=== PATIENT | female | born 1965 ===

== ENCOUNTER 2024-05-28 09:01 | Outpatient (AMB) | payer BC, SELFPAY ==
--- NOTE | 2024-05-28 09:15 | A.OFFPC_ITS ---
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 Intake Note: New patient visit Allergies No Known Allergies Allergy (Verified 05/28/24 09:16) Medication List - Last Reconciled 05/28/24 by Margaux Baker PA-C escitalopram oxalate 10 mg PO DAILY risperidone 1 mg PO BID Tobacco use date assessed: 05/28/24 Dental Screening Dental Screen Date: 05/28/24 Did you have a dental visit in the last 12 months?: Yes Did you have a dental problem in the last 6 months where you did not have access to dental care?: No Was dental information given to patient?: Patient has dentist HPI 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 Transferring from [facility] with her . Psych: She is on Lexapro 10 mg daily and Risperdal 1 mg once a day. She was supposed to follow up with a psychiatrist and states that she finally has an appointment on 06/18. She is hoping to further cut back on the Risperdal. Overall she is feeling stable. No SI/HI. No current delusions. 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 Does use at [facility]. [facility] Social History Housing: House Patient Tobacco Use Status: Former Tobacco user Cigarette Packs Per Day: 1 Years Smoked: 20 e-Cigarette/Vaping Use: Never Used Second Hand Smoke Exposure: No service: No Current occupational status: retired Cognitive needs: No Hearing needs: No Vision needs: Yes (blind) Questionnaire PHQ-9 Over the last 2 weeks, how often have you been bothered by any of the following problems? 1. Little interest or pleasure in doing things: not at all 2. Feeling down, depressed, or hopeless: not at all 3. Trouble falling or staying asleep, or sleeping too much: not at all 4. Feeling tired or having little energy: not at all 5. Poor appetite or overeating: not at all 6. Feeling bad about yourself - or that you are a failure or have let yourself or your family down: not at all 7. Trouble concentrating on things, such as reading the newspaper or watching television: not at all 8. Moving or speaking so slowly that other people could have noticed. Or the opposite - being so fidgety or restless that you have been moving around a lot more than usual: not at all 9. Thoughts that you would be better off or of hurting yourself in some way: not at all Total score: 0 Source: Developed by Drs. Jarad Sparrow, Lidia Hoover, Mina Amaral and colleagues, with an educational leigha from [employer]. Thrive Questionnaire Date Thrive assessed: 05/25/24 I am a: Patient What is your living situation today?: I have a steady place to live Within the past 12 months, did the food you bought not last and you didn't have the money to get more?: Never true Within the past 12 months, did you worry whether your food would run out before you got money to buy more?: Never true Do you have trouble paying for medicines?: No Do you have trouble getting transportation to medical appointments?: No Do you have trouble paying your heating and electricity bill?: No Do you have trouble taking care of your child, family member or friend?: I choose not to answer this question Do you have trouble with day-to-day activities such as bathing, preparing meals, shopping, managing finances, etc.?: I choose not to answer this question Are you currently unemployed and looking for a job?: I choose not to answer this question Are you interested in more education?: No Please select the resources that you would like help with: None Currently or been in a relationship where the following occur: No concerns reported THRIVE Score: 0 AUDIT C Alcohol Use Questionnaire (AUDIT-C) 1. How often do you have a drink containing alcohol?: Never 3. How often do you have six or more drinks on one occasion?: Never Total Score: 0 REMIGIO-7 AMB Questionnaire REMIGIO-7 Feeling nervous, anxious, or on edge: 0 = Not at all Not being able to stop or control worryin = Not at all Worrying too much about different things: 0 = Not at all Trouble relaxin = Not at all Being so restless that it is hard to sit still: 0 = Not at all Becoming easily annoyed or irritable: 0 = Not at all Feeling afraid as if something awful might happen: 0 = Not at all Total REMIGIO-7 score (0-4 normal; 5-9 mild; 10-14 moderate; 15-21 severe): 0 Source: Developed by Drs. Jarad Sparrow, Lidia Hoover, Mina Amaral and colleagues, with an educational leigha from [employer]. Physical exam (Primary Care) Vital Signs: Last Vital Signs Pulse 85 05/28/24 09:20 BP 98/76 05/28/24 09:20 Pulse Ox 95 05/28/24 09:20 Oxygen Delivery Method Room Air 05/28/24 09:20 BMI result Body Mass Index 32.3 Tobacco/Smoking Status: Tobacco use Status Tobacco use date assessed 05/28/24 05/28/24 09:19 Patient Tobacco Use Status Former Tobacco user 05/28/24 09:19 e-Cigarette/Vaping Use Never Used 05/28/24 09:19 PHQ-9: PHQ-9 Score PHQ-9: Total score 0 05/28/24 09:54 Thrive Assessment: Date of Thrive Assessment Date Thrive assessed 05/25/24 05/28/24 09:19 Currently or been in a relationship where the following occur: No concerns reported Const Orientation/consciousness: patient oriented x3 HENMT Ears: hearing grossly normal bilaterally Neck Thyroid: Thyroid normal Lymphatic: no lymphadenopathy noted Resp Auscultation: clear to auscultation bilaterally Cardio Rate: regular rate Rhythm: regular rhythm Heart sounds: S1 normal heart sound present and S2 normal heart sound present GI Inspection: Yes normal to inspection Palpation (GI): Soft to palpation and Other GI palpation findings present (nontender, no cva tenderness) Auscultation: normoactive bowel sounds Rectal Exam - Female: deferred Skin General skin exam: no rashes or lesions noted Neuro General: patient oriented x3, gait normal and no focal motor deficits Coding Level of Care Code Est Pt Level 4 (38470) Complex EM visit Add On G2211 Diagnoses Retinitis pigmentosa H35.52 Hyperlipidemia E78.5 Anxiety and depression F41.9; F32.A Paranoid delusion F22 Assessment & Plan Assessment & Plan (1) Retinitis pigmentosa: Code(s): H35.52 - Pigmentary retinal dystrophy Category: Medical Plan: Stable (2) Hyperlipidemia: Code(s): E78.5 - Hyperlipidemia, unspecified Category: Medical Plan: Last labs from [facility] did show a little elevated cholesterol. Working on some diet changes. We will recheck. (3) Anxiety and depression: Code(s): F41.9 - Anxiety disorder, unspecified; F32.A - Depression, unspecified Category: Medical Plan: Stable with Lexapro and Risperdal. Has an appointment with Psychiatry. (4) Paranoid delusion: Code(s): F22 - Delusional disorders Category: Medical Plan: Not currently present. Orders: Orders Complete Blood Count Auto Diff Today E78.5 - Hyperlipidemia, unspecified, F22 - Delusional disorders, F32.A - Depression, unspecified, F41.9 - Anxiety disorder, unspecified, H35.52 - Pigmentary retinal dystrophy Lipid Panel Today E78.5 - Hyperlipidemia, unspecified, F22 - Delusional disorders, F32.A - Depression, unspecified, F41.9 - Anxiety disorder, unspecified, H35.52 - Pigmentary retinal dystrophy TSH reflex Free T4 Today E78.5 - Hyperlipidemia, unspecified, F22 - Delusional disorders, F32.A - Depression, unspecified, F41.9 - Anxiety disorder, unspecified, H35.52 - Pigmentary retinal dystrophy Comprehensive [place]. Panel Fast Today E78.5 - Hyperlipidemia, unspecified, F22 - Delusional disorders, F32.A - Depression, unspecified, F41.9 - Anxiety disorder, unspecified, H35.52 - Pigmentary retinal dystrophy
[2024-05-28 09:20] VITALS: BP 98/76; PULSE 85; O2SAT 95; BMI 32.3
== END 2024-05-28 10:00 | disposition home or self-care (01) ==
PROVIDERS: PCP Physician Assistant; Visit Provider Physician Assistant
DX: H35.52 Pigmentary retinal dystrophy (principal); F22 Delusional disorders; E78.5 Hyperlipidemia, unspecified; F41.9 Anxiety disorder, unspecified; F32.A Depression, unspecified; Z23 Encounter for immunization

== ENCOUNTER → 2024-05-28 09:01 | Outpatient (BNVA) | payer BC, SELFPAY | PROVIDERS: PCP Physician Assistant; Visit Provider Physician Assistant | DX: H35.52 Pigmentary retinal dystrophy (principal); E78.5 Hyperlipidemia, unspecified; F41.9 Anxiety disorder, unspecified; F32.A Depression, unspecified; F22 Delusional disorders; Z23 Encounter for immunization | CPT/HCPCS: 90471; 90656; 96127 ==

== ENCOUNTER 2024-09-02 09:21 | Outpatient (AMB) | payer BC, SELFPAY ==
--- NOTE | 2024-09-02 09:36 | MHC.PC.OV ---
Vital Signs 09/02/24 09:39 Height 5 ft 4 in Weight 196 lb 2 oz BMI 33.7 BP 114/70 Blood Pressure Location Rt brachial Position Sitting Respiration 14 Pulse 72 Pulse Source Pulse Oximeter Pulse Oximetry (%) 98 Intake Visit Reasons: anxiety f/u, cholesterol Intake Note: Follow up anxiety. Junk Removal Specialist Required: No Allergies No Known Allergies Allergy (Verified 09/02/24 09:37) Tobacco use date assessed: 09/02/24 Dental Screening Dental Screen Date: 05/28/24 HPI anxiety f/u, cholesterol HPI Details Patient is a 58-year-old female with a significant past medical history of paranoid delusion disorder, anxiety, depression, retinitis pigmentosa presenting today for a follow up. Psych: She is on Lexapro 10 mg daily and Risperdal 0.5 mg once a day. She is following with Psychiatry. She states that she feels overall stable and has not experienced any delusions. No SI/HI. Her has been states that she seems back to her normal spirit. 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 No SI/HI. 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 Does them at [facility]. Bone density: UTD- due in 2026 [facility] Social History Housing: House Patient Tobacco Use Status: Former Tobacco user Cigarette Packs Per Day: 1 Years Smoked: 20 e-Cigarette/Vaping Use: Never Used Second Hand Smoke Exposure: No service: No Current occupational status: retired Cognitive needs: No Hearing needs: No Vision needs: Yes (blind) Questionnaire Thrive Questionnaire Date Thrive assessed: 08/30/24 I am a: Parent/Caregiver What is your living situation today?: I have a steady place to live Within the past 12 months, did the food you bought not last and you didn't have the money to get more?: Never true Within the past 12 months, did you worry whether your food would run out before you got money to buy more?: Never true Do you have trouble paying for medicines?: No Do you have trouble getting transportation to medical appointments?: No Do you have trouble paying your heating and electricity bill?: No Do you have trouble taking care of your child, family member or friend?: No Do you have trouble with day-to-day activities such as bathing, preparing meals, shopping, managing finances, etc.?: No Are you currently unemployed and looking for a job?: No Are you interested in more education?: No Please select the resources that you would like help with: None Currently or been in a relationship where the following occur: No concerns reported THRIVE Score: 0 AUDIT C Alcohol Use Questionnaire (AUDIT-C) 1. How often do you have a drink containing alcohol?: Never 3. How often do you have six or more drinks on one occasion?: Never Total Score: 0 REMIGIO-7 AMB Questionnaire REMIGIO-7 Feeling nervous, anxious, or on edge: 0 = Not at all Not being able to stop or control worryin = Not at all Worrying too much about different things: 0 = Not at all Trouble relaxin = Not at all Being so restless that it is hard to sit still: 0 = Not at all Becoming easily annoyed or irritable: 0 = Not at all Feeling afraid as if something awful might happen: 0 = Not at all Total REMIGIO-7 score (0-4 normal; 5-9 mild; 10-14 moderate; 15-21 severe): 0 Source: Developed by Drs. Jarad Sparrow, Lidia Hoover, Mina Amaral and colleagues, with an educational leigha from [employer]. Physical exam (Primary Care) Vital Signs: Last Vital Signs Pulse 72 09/02/24 09:39 Resp 14 09/02/24 09:39 BP 114/70 09/02/24 09:39 Pulse Ox 98 09/02/24 09:39 BMI result Body Mass Index 33.7 Tobacco/Smoking Status: Tobacco use Status Tobacco use date assessed 09/02/24 09/02/24 09:39 Patient Tobacco Use Status Former Tobacco user 09/02/24 09:36 e-Cigarette/Vaping Use Never Used 09/02/24 09:36 Thrive Assessment: Date of Thrive Assessment Date Thrive assessed 08/30/24 09/02/24 09:36 Currently or been in a relationship where the following occur: No concerns reported Const Orientation/consciousness: patient oriented x3 HENMT Ears: hearing grossly normal bilaterally Neck Thyroid: Thyroid normal Lymphatic: no lymphadenopathy noted Resp Auscultation: clear to auscultation bilaterally Cardio Rate: regular rate Rhythm: regular rhythm Heart sounds: S1 normal heart sound present and S2 normal heart sound present GI Inspection: Yes normal to inspection Palpation (GI): Soft to palpation and Other GI palpation findings present (nontender, no cva tenderness) Auscultation: normoactive bowel sounds Rectal Exam - Female: deferred Skin General skin exam: no rashes or lesions noted Neuro General: patient oriented x3, gait normal and no focal motor deficits Coding Level of Care Code Est Pt Level 4 (60903) Complex EM visit Add On G2211 Diagnoses Anxiety and depression F41.9; F32.A Hyperlipidemia E78.5 Paranoid delusion F22 Assessment & Plan Assessment & Plan (1) Anxiety and depression: Code(s): F41.9 - Anxiety disorder, unspecified; F32.A - Depression, unspecified Category: Medical Plan: Currently well-controlled on following with Psychiatry. (2) Hyperlipidemia: Code(s): E78.5 - Hyperlipidemia, unspecified Category: Medical Plan: History of this. We will check labs. (3) Paranoid delusion: Code(s): F22 - Delusional disorders Category: Medical Plan: As above. Stable.
[2024-09-02 09:39] VITALS: BP 114/70; PULSE 72; RESP 14; O2SAT 98; BMI 33.7
== END 2024-09-02 10:09 | disposition home or self-care (01) ==
PROVIDERS: PCP Physician Assistant; Visit Provider Physician Assistant
DX: F41.9 Anxiety disorder, unspecified (principal); F32.A Depression, unspecified; E78.5 Hyperlipidemia, unspecified; F22 Delusional disorders

== ENCOUNTER 2024-09-02 10:11 | Outpatient (REF) | payer BC, SELFPAY ==
[2024-09-02 14:17] LABS: MANUAL DIFF FLAG NO
[2024-09-02 14:24] LABS: Basophils Percent Auto 0.5 % (0-2); Eosinophils Percent Auto 0.4 % (0-4); Hemoglobin 14.5 g/dl (12.0-16.0); Imm Gran Abs Auto 0.04 X10*3/uL (0.00-0.03); Imm Gran Pct Auto 0.5 % (0.0-0.4); Lymphocytes Absolute Auto 1.6 X10*3/uL (1.2-4.9); Mean Corpuscular HGB Conc 32.2 g/dl (31.0-35.0); Mean Corpuscular Hemoglobin 30.9 pg (27.0-33.0); Mean Corpuscular Volume 95.9 fL (80.0-98.0); Mean Platelet Volume 10.5 fL (9.4-12.3); Monocytes Absolute Auto 0.4 X10*3/uL (0.1-1.2); Monocytes Percent Auto 5.5 % (2-11); Neutrophils Absolute Auto 5.6 x10*3/uL (2.0-8.3); Neutrophils Percent Auto 72.1 % (45-73); Platelet Count 275 X10*3/uL (160-400); Red Blood Count 4.69 X10*6/uL (4.20-5.50); Red Cell Distribution Width 13.8 % (11.0-16.0); White Blood Count 7.7 X10*3/uL (4.8-10.8)
[2024-09-02 14:48] LABS: Alanine Aminotransferase 20 U/L (0-31); Albumin Level 4.1 g/dL (3.5-5.0); Alkaline Phosphatase 93 U/L (39-117); Anion Gap 9 (12-20); Aspartate Amino Transferase 21 U/L (5-31); Bilirubin Total 0.3 mg/dL (0.0-1.0); Blood Urea Nitrogen 23 mg/dL (9-16); Calcium 9.8 mg/dL (8.4-10.2); Carbon Dioxide 28 mmol/L (22-29); Chloride 107 mmol/L (96-108); Cholesterol 216 mg/dL (<200); Estimated Glomerular Filt Rate > 60; Glucose Fasting 91 mg/dL (60-99); HDL Cholesterol 44 mg/dL (>40); LDL Cholesterol Calculated 152 mg/dL (<100); Potassium 4.1 mmol/L (3.3-5.1); Sodium 140 mmol/L (135-145); Total Protein 7.4 g/dL (6.5-8.0); Triglycerides 103 mg/dL (<150)
[2024-09-02 14:57] LABS: TSH reflex Free T4 0.98 uIU/mL (0.32-4.0)
== END 2024-09-02 10:12 | disposition home or self-care (01) ==
LOC: HO.WFDLDS 10:11
PROVIDERS: Visit Provider Physician Assistant
DX: H35.52 Pigmentary retinal dystrophy (principal); E78.5 Hyperlipidemia, unspecified; F41.9 Anxiety disorder, unspecified; F32.A Depression, unspecified; F22 Delusional disorders
CPT/HCPCS: 36415; 80053; 80061; 84443; 85025

== ENCOUNTER 2024-12-22 09:51 | Outpatient (REF) | payer BC, SELFPAY ==
[2024-12-22 11:48] LABS: Estimated Average Glucose 103 mg/dL; Hemoglobin A1c % 5.2 % (<6.0)
[2024-12-22 12:03] LABS: Alanine Aminotransferase 19 U/L (0-31); Albumin Level 4.3 g/dL (3.5-5.0); Alkaline Phosphatase 101 U/L (39-117); Anion Gap 10 (12-20); Aspartate Amino Transferase 20 U/L (5-31); Bilirubin Total 0.4 mg/dL (0.0-1.0); Blood Urea Nitrogen 25 mg/dL (9-16); Calcium 9.8 mg/dL (8.4-10.2); Carbon Dioxide 28 mmol/L (22-29); Chloride 106 mmol/L (96-108); Cholesterol 230 mg/dL (<200); Estimated Glomerular Filt Rate > 60; Glucose Fasting 106 mg/dL (60-99); HDL Cholesterol 44 mg/dL (>40); LDL Cholesterol Calculated 165 mg/dL (<100); Potassium 4.3 mmol/L (3.3-5.1); Sodium 140 mmol/L (135-145); Total Protein 6.8 g/dL (6.5-8.0); Triglycerides 106 mg/dL (<150)
[2024-12-22 12:06] LABS: TSH reflex Free T4 1.74 uIU/mL (0.32-4.0)
[2024-12-22 14:15] LABS: Appearance Urine Turbid; Color Urine Yellow; Glucose Urine UA Negative (Negative); Leukocyte Esterase Urine Trace (Negative); Nitrite Urine Negative (Negative); Specific Gravity - Urine 1.025 (1.005-1.025); UMIC TRIGGER UACC YES; Urine Blood Small (1+) (Negative); Urine Ketones Negative (Negative); Urine Protein Negative (Neg-Trace)
[2024-12-22 14:41] LABS: Bacteria Urine 1+ (None Seen); Hyaline Casts Urine 0-2 /LPF (0-2); Other Crystals Urine Present; RBC Urine 0-2 /HPF (0-2); UACC Culture Trigger YES
== END 2024-12-22 09:52 | disposition home or self-care (01) ==
LOC: HO.WFDLDS 09:51
PROVIDERS: Physician Assistant; Visit Provider Physician Assistant Medical
DX: F22 Delusional disorders (principal); E78.5 Hyperlipidemia, unspecified; F41.9 Anxiety disorder, unspecified; F32.A Depression, unspecified; R73.01 Impaired fasting glucose
CPT/HCPCS: 36415; 80053; 80061; 81001; 83036; 84443; 87086

== ENCOUNTER 2025-01-06 09:19 | Outpatient (AMB) | payer BC, SELFPAY ==
--- NOTE | 2025-01-06 09:34 | MHC.PC.OV ---
Vital Signs 01/06/25 09:36 Height 5 ft 4 in Weight 205 lb 2 oz BMI 35.2 BP 110/80 Blood Pressure Location Rt brachial Position Sitting Respiration 14 Pulse 84 Pulse Source Pulse Oximeter Temp 98.3 F Temp Source Oral Pulse Oximetry (%) 96 Oxygen Delivery Method Room Air Intake Visit Reasons: F/u meds Intake Note: Medication follow. Has cough, phlem, headache. sxs for 4 days. Inspector Bullet Slugs Required: No Allergies No Known Allergies Allergy (Verified 01/06/25 09:35) Medication List - Last Reconciled 01/06/25 by Margaux Baker PA-C escitalopram oxalate 10 mg PO DAILY Tobacco use date assessed: 01/06/25 Dental Screening Dental Screen Date: 01/06/25 Did you have a dental visit in the last 12 months?: Yes Did you have a dental problem in the last 6 months where you did not have access to dental care?: No Was dental information given to patient?: Patient has dentist HPI F/u meds HPI Details Patient is a 59-year-old female with a significant past medical history of paranoid delusion disorder, anxiety, depression, retinitis pigmentosa presenting today for a follow up. HEENT: States for the last week she has had sinus pain and pressure, worse on the left side and a cough which she thinks is caused by the postnasal drip. The cough is intermittently productive. No fevers or chills. No body aches. She says that she has tried [id number] cold remedies without any improvement. Just feels like she is getting worse instead of better. CV: Blood pressure today in the office is 110/80. She states that her diet has not been as good as it normally is. Her has been is the cook and he does cook a lot of foods high in fats. Her last cholesterol did come back elevated. She states that she really does not want to take a statin it would prefer to try diet modifications. Uro: Last urine did show hematuria. She was dehydrated for that exam. Psych: She is on Lexapro 10 mg daily. She is following with Psychiatry. She states that she feels overall stable and has not experienced any delusions. No SI/HI. Her has been states that she seems back to her normal self. 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 No SI/HI. 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 Bone density: UTD- due in 2026 [facility] Social History Housing: House Patient Tobacco Use Status: Former Tobacco user Cigarette Packs Per Day: 1 Years Smoked: 20 e-Cigarette/Vaping Use: Never Used Second Hand Smoke Exposure: No service: No Current occupational status: retired Cognitive needs: No Hearing needs: No Vision needs: Yes (blind) Questionnaire PHQ-9 Over the last 2 weeks, how often have you been bothered by any of the following problems? 1. Little interest or pleasure in doing things: not at all 2. Feeling down, depressed, or hopeless: not at all 3. Trouble falling or staying asleep, or sleeping too much: not at all 4. Feeling tired or having little energy: not at all 5. Poor appetite or overeating: not at all 6. Feeling bad about yourself - or that you are a failure or have let yourself or your family down: not at all 7. Trouble concentrating on things, such as reading the newspaper or watching television: not at all 8. Moving or speaking so slowly that other people could have noticed. Or the opposite - being so fidgety or restless that you have been moving around a lot more than usual: not at all 9. Thoughts that you would be better off or of hurting yourself in some way: not at all Total score: 0 Depression Screening Interpretation: Negative Depression Screening Done: Yes 28470 - PHQ-9 Billing: Yes Source: Developed by Drs. Jarad Sparrow, Lidia Hoover, Mina Amaral and colleagues, with an educational leigha from [employer]. Thrive Questionnaire Date Thrive assessed: 08/30/24 I am a: Parent/Caregiver What is your living situation today?: I have a steady place to live Within the past 12 months, did the food you bought not last and you didn't have the money to get more?: Never true Within the past 12 months, did you worry whether your food would run out before you got money to buy more?: Never true Do you have trouble paying for medicines?: No Do you have trouble getting transportation to medical appointments?: No Do you have trouble paying your heating and electricity bill?: No Do you have trouble taking care of your child, family member or friend?: No Do you have trouble with day-to-day activities such as bathing, preparing meals, shopping, managing finances, etc.?: No Are you currently unemployed and looking for a job?: No Are you interested in more education?: No Please select the resources that you would like help with: None Currently or been in a relationship where the following occur: No concerns reported THRIVE Score: 0 AUDIT C Alcohol Use Questionnaire (AUDIT-C) 1. How often do you have a drink containing alcohol?: Never 3. How often do you have six or more drinks on one occasion?: Never Total Score: 0 Physical exam (Primary Care) Vital Signs: Last Vital Signs Temp 98.3 F 01/06/25 09:36 Pulse 84 01/06/25 09:36 Resp 14 01/06/25 09:36 BP 110/80 01/06/25 09:36 Pulse Ox 96 01/06/25 09:36 Oxygen Delivery Method Room Air 01/06/25 09:36 BMI result Body Mass Index 35.2 Tobacco/Smoking Status: Tobacco use Status Tobacco use date assessed 01/06/25 01/06/25 09:41 Patient Tobacco Use Status Former Tobacco user 01/06/25 09:41 e-Cigarette/Vaping Use Never Used 01/06/25 09:41 PHQ-9: PHQ-9 Score PHQ-9: Total score 0 01/06/25 09:41 Depression Screening Interpretation: Negative Thrive Assessment: Date of Thrive Assessment Date Thrive assessed 08/30/24 01/06/25 09:41 Currently or been in a relationship where the following occur: No concerns reported Const Orientation/consciousness: patient oriented x3 HENMT Other: TMs are dome-shaped a small air-fluid levels bilaterally. Nasal mucosa erythematous and edematous. Maxillary sinus tenderness present. Posterior oropharynx normal. No exudates. Ears: hearing grossly normal bilaterally Neck Thyroid: Thyroid normal Lymphatic: no lymphadenopathy noted Resp Auscultation: clear to auscultation bilaterally Cardio Rate: regular rate Rhythm: regular rhythm Heart sounds: S1 normal heart sound present and S2 normal heart sound present GI Inspection: Yes normal to inspection Palpation (GI): Soft to palpation and Other GI palpation findings present (nontender, no cva tenderness) Auscultation: normoactive bowel sounds Rectal Exam - Female: deferred Skin General skin exam: no rashes or lesions noted Neuro General: patient oriented x3, gait normal and no focal motor deficits Coding Level of Care Code Est Pt Level 4 (74950) Complex EM visit Add On G2211 Diagnoses Hyperlipidemia E78.5 Anxiety and depression F41.9; F32.A Bacterial sinusitis J32.9; B96.89 Additional Codes PHQ-9 - 50771 - PHQ-9 Billing: Yes ([id number]) Assessment & Plan Assessment & Plan (1) Hyperlipidemia: Code(s): E78.5 - Hyperlipidemia, unspecified Category: Medical Plan: She is going to try lifestyle modifications. We will recheck in 4-6 months. If still elevated we will start statin. (2) Anxiety and depression: Code(s): F41.9 - Anxiety disorder, unspecified; F32.A - Depression, unspecified Category: Medical Plan: Currently well-controlled. Doing well with the Lexapro. Following with Psychiatry. (3) Bacterial sinusitis: Code(s): J32.9 - Chronic sinusitis, unspecified; B96.89 - Other specified bacterial agents as the cause of diseases classified elsewhere Plan: We will start her on Augmentin and Flonase. Discussed risks and benefits and adverse effects of this medication. Plan Recheck UA today Orders: Orders Lipid Panel Today E78.5 - Hyperlipidemia, unspecified, R31.9 - Hematuria, unspecified UA CC w/rflx Micro + Cult Today E78.5 - Hyperlipidemia, unspecified, R31.9 - Hematuria, unspecified, Z13.220 - Encounter for screening for lipoid disorders Medications: New amoxicillin-pot clavulanate 875-125 mg 1 tab PO Q12H 20 tabs 0RF fluticasone propionate 50 mcg/actuation (Flonase Allergy Relief) administer into each nostril 2 sprays intranasal DAILY 16 grams 0RF
[2025-01-06 09:36] VITALS: BP 110/80; PULSE 84; RESP 14; TEMP 36.8; O2SAT 96; BMI 35.2
== END 2025-01-06 10:25 | disposition home or self-care (01) ==
LOC: HO.HMCFM 09:20
PROVIDERS: PCP Physician Assistant; Visit Provider Physician Assistant
DX: E78.5 Hyperlipidemia, unspecified (principal); F41.9 Anxiety disorder, unspecified; F32.A Depression, unspecified; J32.9 Chronic sinusitis, unspecified; B96.89 Other specified bacterial agents as the cause of diseases classified elsewhere

== ENCOUNTER → 2025-01-06 09:19 | Outpatient (BNVA) | payer BC, SELFPAY | PROVIDERS: PCP Physician Assistant; Visit Provider Physician Assistant | DX: Z13.89 Encounter for screening for other disorder (principal) ==

== ENCOUNTER 2025-01-06 10:15 | Outpatient (REF) | payer BC, SELFPAY ==
[2025-01-06 14:30] LABS: Appearance Urine Clear; Color Urine Yellow; Glucose Urine UA Negative (Negative); Leukocyte Esterase Urine Negative (Negative); Nitrite Urine Negative (Negative); Specific Gravity - Urine >= 1.030 (1.005-1.025); UMIC TRIGGER UACC YES; Urine Blood Small (1+) (Negative); Urine Ketones Negative (Negative); Urine Protein Negative (Neg-Trace)
[2025-01-06 14:47] LABS: Bacteria Urine 4+ (None Seen); Hyaline Casts Urine 0-2 /LPF (0-2); RBC Urine 0-2 /HPF (0-2); Squamous Epithelial Cell Urine 0-2 /HPF (0-2); UACC Culture Trigger YES
== END 2025-01-06 10:16 | disposition home or self-care (01) ==
LOC: HO.WFDLDS 10:15
PROVIDERS: Physician Assistant; Visit Provider Nurse Practitioner Family
DX: E78.5 Hyperlipidemia, unspecified (principal); F41.9 Anxiety disorder, unspecified; F32.A Depression, unspecified; J32.9 Chronic sinusitis, unspecified; B96.89 Other specified bacterial agents as the cause of diseases classified elsewhere; R31.9 Hematuria, unspecified; Z79.899 Other long term (current) drug therapy; Z13.30 Encounter for screening examination for mental health and behavioral disorders, unspecified
CPT/HCPCS: 81001; 87086; 87088; 87186; 96127

== ENCOUNTER 2025-01-18 11:55 | Outpatient (REF) | payer BC, SELFPAY ==
[2025-01-18 14:38] LABS: Appearance Urine Cloudy; Glucose Urine UA Negative (Negative); PH 5.5 (5.0-9.0); Specific Gravity - Urine 1.020 (1.005-1.025)
== END 2025-01-18 11:56 | disposition home or self-care (01) ==
LOC: HO.WFDLDS 11:55
PROVIDERS: Visit Provider Physician Assistant
DX: Z13.220 Encounter for screening for lipoid disorders (principal); F22 Delusional disorders; E78.5 Hyperlipidemia, unspecified; F41.9 Anxiety disorder, unspecified; F32.A Depression, unspecified
CPT/HCPCS: 81003

== ENCOUNTER 2025-06-16 08:43 | Outpatient (AMB) | payer BC, SELFPAY ==
--- NOTE | 2025-06-16 08:36 | A.OFFPC_ITS ---
Vital Signs 06/16/25 08:37 Height 5 ft 4 in Weight 215 lb 8 oz BMI 37.0 BP 109/68 Blood Pressure Location Lt brachial Position Sitting Respiration 14 Pulse 82 Pulse Source Pulse Oximeter Temp 97.2 F Temp Source Oral Pulse Oximetry (%) 98 Oxygen Delivery Method Room Air Intake Visit Reasons: cholesterol Intake Note: Cholesterol follow up Agency Cashier Required: No Allergies No Known Allergies Allergy (Verified 06/16/25 08:36) Medication List - Last Reconciled 06/16/25 by Margaux Baker PA-C escitalopram oxalate 10 mg PO DAILY fluticasone propionate 50 mcg/actuation 2 sprays intranasal DAILY Tobacco use date assessed: 06/16/25 Dental Screening Dental Screen Date: 01/06/25 HPI cholesterol HPI Details Patient is a 59-year-old female with a significant past medical history of paranoid delusion disorder, anxiety, depression, retinitis pigmentosa presenting today for a follow up. CV: Blood pressure today in the office is 109/68. She states that she has tried some dietary modifications but it was just Thanksgiving and had some dietary indiscretions. She does not like the idea of statins but is in agreement to try this if her cholesterol comes back elevated today. Psych: She is on Lexapro 10 mg daily. She is following with Psychiatry 06/10/25 and booked in July. She states that she feels overall stable and has not experienced any delusions. No SI/HI. Her has been states that she seems back to her normal self. 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 No SI/HI. Hospitality Workers: Up-to-date Colonoscopy: UTD 08/17/24- polyps due in 7 years Mammogram: Completed in 2024 Does them at [facility]. Bone density: UTD- due in 2026 [facility] Social History Housing: House Patient Tobacco Use Status: Former Tobacco user Cigarette Packs Per Day: 1 Years Smoked: 20 e-Cigarette/Vaping Use: Never Used Second Hand Smoke Exposure: No service: No Current occupational status: retired Cognitive needs: No Hearing needs: No Vision needs: Yes (blind) Questionnaire Thrive Questionnaire Date Thrive assessed: 08/30/24 I am a: Parent/Caregiver What is your living situation today?: I have a steady place to live Within the past 12 months, did the food you bought not last and you didn't have the money to get more?: Never true Within the past 12 months, did you worry whether your food would run out before you got money to buy more?: Never true Do you have trouble paying for medicines?: No Do you have trouble getting transportation to medical appointments?: No Do you have trouble paying your heating and electricity bill?: No Do you have trouble taking care of your child, family member or friend?: No Do you have trouble with day-to-day activities such as bathing, preparing meals, shopping, managing finances, etc.?: No Are you currently unemployed and looking for a job?: No Are you interested in more education?: No Please select the resources that you would like help with: None Currently or been in a relationship where the following occur: No concerns reported THRIVE Score: 0 AUDIT C Alcohol Use Questionnaire (AUDIT-C) 1. How often do you have a drink containing alcohol?: Never 3. How often do you have six or more drinks on one occasion?: Never Total Score: 0 Physical exam (Primary Care) Tobacco/Smoking Status: Tobacco use Status Tobacco use date assessed 01/06/25 01/06/25 09:41 Patient Tobacco Use Status Former Tobacco user 01/06/25 09:41 e-Cigarette/Vaping Use Never Used 01/06/25 09:41 Thrive Assessment: Date of Thrive Assessment Date Thrive assessed 08/30/24 01/06/25 09:41 Currently or been in a relationship where the following occur: No concerns reported Const Orientation/consciousness: patient oriented x3 HENMT Ears: hearing grossly normal bilaterally Neck Thyroid: Thyroid normal Lymphatic: no lymphadenopathy noted Resp Auscultation: clear to auscultation bilaterally Cardio Rate: regular rate Rhythm: regular rhythm Heart sounds: S1 normal heart sound present and S2 normal heart sound present GI Inspection: Yes normal to inspection Palpation (GI): Soft to palpation and Other GI palpation findings present (nontender, no cva tenderness) Auscultation: normoactive bowel sounds Rectal Exam - Female: deferred Skin General skin exam: no rashes or lesions noted Neuro General: patient oriented x3, gait normal and no focal motor deficits Results Reviewed Results Reviewed: Laboratory Tests 09/02/24 12/22/24 10:17 09:54 WBC 7.7 RBC 4.69 Hgb 14.5 Hct 45.0 Plt Count 275 Sodium 140 Potassium 4.3 Chloride 106 Carbon Dioxide 28 Anion Gap 10 L BUN 25 H Creatinine 0.68 Estimated GFR > 60 Fasting Glucose 106 H Hemoglobin A1c % 5.2 AST 20 ALT 19 Alkaline Phosphatase 101 Total Protein 6.8 Albumin 4.3 Triglycerides 106 Cholesterol 230 H LDL Cholesterol, Calc 165 H HDL Cholesterol 44 TSH 1.74 Coding Level of Care Code Est Pt Level 4 (27591) Complex visit Add On G2211 Diagnoses Retinitis pigmentosa H35.52 Hyperlipidemia E78.5 Anxiety and depression F41.9; F32.A Assessment & Plan Assessment & Plan (1) Retinitis pigmentosa: Code(s): H35.52 - Pigmentary retinal dystrophy Category: Medical Plan: Up-to-date following with specialists (2) Hyperlipidemia: Code(s): E78.5 - Hyperlipidemia, unspecified Category: Medical Plan: We will recheck lipids today (3) Anxiety and depression: Code(s): F41.9 - Anxiety disorder, unspecified; F32.A - Depression, unspecified Category: Medical Plan: Continue with Psychiatry Stable with Lexapro Orders: Orders Complete Blood Count Auto Diff Today E78.5 - Hyperlipidemia, unspecified, F32.A - Depression, unspecified, F41.9 - Anxiety disorder, unspecified, H35.52 - Pigmentary retinal dystrophy Comprehensive [facility]. Panel Fast Today E78.5 - Hyperlipidemia, unspecified, F32.A - Depression, unspecified, F41.9 - Anxiety disorder, unspecified, H35.52 - Pigmentary retinal dystrophy TSH reflex Free T4 Today E78.5 - Hyperlipidemia, unspecified, F32.A - Depression, unspecified, F41.9 - Anxiety disorder, unspecified, H35.52 - Pigmentary retinal dystrophy UA CC w/rflx Micro + Cult Today E78.5 - Hyperlipidemia, unspecified, F32.A - Depression, unspecified, F41.9 - Anxiety disorder, unspecified, H35.52 - Pigmentary retinal dystrophy, R30.0 - Dysuria Hemoglobin A1c Today E78.5 - Hyperlipidemia, unspecified, F32.A - Depression, unspecified, F41.9 - Anxiety disorder, unspecified, H35.52 - Pigmentary retinal dystrophy, R73.01 - Impaired fasting glucose Lipid Panel Today E78.5 - Hyperlipidemia, unspecified, F32.A - Depression, unspecified, F41.9 - Anxiety disorder, unspecified, H35.52 - Pigmentary retinal dystrophy Microalbumin, Random (w Creat) Today E78.5 - Hyperlipidemia, unspecified, F32.A - Depression, unspecified, F41.9 - Anxiety disorder, unspecified, H35.52 - Pigmentary retinal dystrophy
[2025-06-16 08:37] VITALS: BP 109/68; PULSE 82; RESP 14; TEMP 36.2; O2SAT 98; BMI 37.0
--- OUTSIDE RECORDS SUMMARY | 2025-06-16 08:59 | XMS_ITS | Encounter Summary ---
Author Organization [facility] Address [address] [facility] [address] [place] [phone] Phone Care Team Providers Care Nursing Surgical Services Director Name Role Phone Mary Perez MD Primary Care Provider + Mary Perez MD Primary Care Provider + Encounter Details Date Type Department Care Team (Late st Contact Info) Description 09/25/2018 Procedure Pass [facility] [place] PERIOP DEPT [address] [place] [id number] Social History Tobacco Use Types Packs/Day Years Used Date Smoking Tobacco: Former Cigarettes 1 20 0 07/15/1975 - 07/15/1995 Smokeless Tobacco: Never Alcohol Use Standard Drinks/Week Comments Yes 1 (1 standard drink = 0.6 oz pur e alcohol) rare Comments No Sex and Gender Information Value Date Recorded Sex Assigned at Not on file Legal Sex Female 2:47 PM EDT Gender Identity Female 07/22/2017 9:38 AM EST Sexual Orientation Not on file 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 Industry 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 [employer] Not on file Not on file Not on file documented as of this encounter Plan of Treatment Not on file documented as of this encounter Visit Diagnoses Not on filedocumented in this encounter Care Teams Nursing Surgical Services Director Relationship Specialty Start Date End Date Mary Perez MD [address] [place] [address] Family Medicine [place] [address] PCP - General Internal Medicine 12/29/18 09/07/20 Mary Perez MD 24 [facility] Family Medicine & [place] [address] PCP - General Internal Medicine 09/08/20 documented as of this encounter Additional Source Comments The information contained in this document represents components of the legal health record. It is not the complete legal health record.[facility]
--- OUTSIDE RECORDS SUMMARY | 2025-06-16 08:59 | XMS_ITS | Encounter Summary ---
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 Not on file Not on file documented as of this encounter Plan of Treatment Not on file documented as of this encounter Visit Diagnoses Not on filedocumented in this encounter Care Teams Board Writer Relationship Specialty Start Date End Date Mary Perez MD [address] [place] [address] Family Medicine [place] [address] PCP - General Internal Medicine 12/29/18 09/07/20 Mary Perez MD 24 [facility] Family Medicine [place] [address] PCP - General Internal Medicine 09/08/20 documented as of this encounter Additional Source Comments The information contained in this document represents components of the legal health record. It is not the complete legal health record.[facility]
--- OUTSIDE RECORDS SUMMARY | 2025-06-16 08:59 | XMS_ITS | Encounter Summary ---
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 Not on file Not on file documented as of this encounter Plan of Treatment Not on file documented as of this encounter Visit Diagnoses Not on filedocumented in this encounter Care Teams Gymnastics Coach Or Instructor Relationship Specialty Start Date End Date Mary Perez MD [address] [place] [address] Family Medicine [place] [address] PCP - General Internal Medicine 12/29/18 09/07/20 Mary Perez MD 24 [facility] Family Medicine [place] [address] PCP - General Internal Medicine 09/08/20 documented as of this encounter Additional Source Comments The information contained in this document represents components of the legal health record. It is not the complete legal health record.[facility]
--- OUTSIDE RECORDS SUMMARY | 2025-06-16 08:59 | XMS_ITS | Clinical Summary ---
Author Organization [facility] Address [address] [address] Phone Care Team Providers Care Incinerator Plant General Supervisor Name Role Phone Mary Perez MD Primary Care Provider + Allergies No known active allergies Medications vitamin A palmitate 15,000 unit Tab Take 1 tablet by mouth daily. 1 Active DOCOSAHEXANOIC ACID/EPA (FISH OIL ORAL) Take 1,200 mg by mouth daily. 8 Active CHOLECALCIFEROL , VITAMIN D3, (VITAMIN D3 ORAL) Take 2,000 Units by mouth daily. 8 Active aspirin 81 MG EC tablet Take 81 mg by mouth daily. 8 Active glucosamine-cho ndroitin 500-400 mg Cap Take 1 capsule by mouth daily. Active ID-prednisolone (15-097H) 1% ophthalmic suspension Place 1 drop into the right eye 2 (two) times a day. 5 mL 1 9 Active diphenhydramine HCl (BENADRYL ALLERGY ORAL) Take 1 tablet by mouth as needed. Active prednisoLONE acetate (PRED FORTE) 1 % ophthalmic suspension Place 1 drop into the right eye 4 (four) times a day. 1 drop to the operative eye, 4 times per day 5 mL 2 9 Active Additional Information Patient not taking.Reported on 07/30/2019 moxifloxacin (VIGAMOX) 0.5 % ophthalmic solution Place 1 drop into the right eye 4 (four) times a day. 1 drop to the operative eye, 4 times per day 3 mL 2 9 Active Additional Information Patient not taking.Reported on 07/30/2019 moxifloxacin (VIGAMOX) 0.5 % ophthalmic solution Instill 1 drop into left eye 4 times a day, start after surgery 3 mL 2 0 Active Additional Information Patient not taking.Reported on 11/07/2020 prednisoLONE acetate (PRED FORTE) 1 % ophthalmic suspension Place 1 drop into the left eye 4 (four) times a day. 10 mL 2 0 Active Additional Information Patient not taking.Reported on 11/07/2020 dorzolamide (TRUSOPT) 2 % ophthalmic solution Instill 1 drop into left eye 2x/day, starting after surgery 10 mL 4 0 Active Additional Information Patient not taking.Reported on 11/07/2020 Active Problems Problem Noted Date Diagnosed Date Morbid obesity with BMI of 40.0-44.9, adult 06/14 Research study patient 12/29/2018 Obese 09/25/2018 Retinitis pigmentosa of both eyes 03/11/2017 Family History Medical History Relation Comments Blindness Paternal Grandmother Glaucoma Neg Hx Macular degeneration Neg Hx Retinal degeneration Neg Hx Relation Status Comments Paternal Grandmother Social History Tobacco Use Types Packs/Day Years Used Date Smoking Tobacco: Former Cigarettes 1 20 0 07/15/1975 - 07/15/1995 Smokeless Tobacco: Never Alcohol Use Standard Drinks/Week Comments Not Asked 0 (1 standard drink = 0.6 oz pur e alcohol) rarely Education Answer Date Recorded Are you interested in more education? Not on lucy e 11/09/2022 Are you concerned about learning? Not on file 11/09/2022 No 11/09/2022 No 11/09/2022 Digital Access Answer Date Recorded No 12/10/2022 No 12/10/2022 No 12/10/2022 Reliable internet access at home? Not on file 12/10/2022 Device with a working camera? 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 Not on file Not on file Last Filed Vital Signs Vital Sign Reading Time Taken Comments Blood Pressure 124/78 09/01/2019 8:23 AM EST Pulse 79 09/01/2019 8:23 AM EST Temperature 36.7 C (98 F) 09/01/2019 8:08 AM EST Respiratory Rate 22 09/01/2019 8:23 AM EST Oxygen Saturation 97% 09/01/2019 8:08 AM EST Inhaled Oxygen Concentration - - Weight 116.6 kg (257 lb) 09/01/2019 6:55 AM EST Height 162.6 cm (5' 4 ) 05/02/2020 8:58 AM EDT Body Mass Index 42.77 09/01/2019 6:55 AM EST Plan of Treatment Health Maintenance Due Date Last Done Comments LIPID PANEL 1964 DEPRESSION SCREENING 1976 SMOKING Hx and SMOKELESS TOBACCO SCREENING 1977 PAP SMEAR 1985 MAMMOGRAM 2004 COLOGUARD 2009 COLONOSCOPY 2009 COLORECTAL CANCER SCREENING 2009 FIT TEST 2009 FOBT 2009 SIGMOIDOSCOPY 2009 VIRTUAL COLONOSCOPY 2009 Adult Td,Tdap Booster 10/12/2013 10/13/2003 PNEUMOCOCCAL VACCINES (50+ years) (1 of 1 - PCV) 2014 RSV VACCINE (1 - Risk 50-74 years 1-dose series) 2014 INFLUENZA VACCINE (#1) 2025 , 05/05/2017 COVID-19 VACCINE (3 - 2024-2 6 season) 2025 11/26/2020, 11/05/2020 HEPATITIS C SCREENING Completed 08/28/2018 , 08/28/2018 HIV ONE-TIME SCREENING (18-6 5 YEARS) Completed 08/28/2018 ZOSTER VACCINES Completed 05/27/2020, 03/18/2020 HEPATITIS A VACCINES Aged Out No long er eligible based on patient's age to complete this topic HIB VACCINES Aged Out No longer eligi ble based on patient's age to complete this topic MENINGOCOCCAL VACCINES (ACWY) Aged Out No longer eligible based on patient's age to complete this topic MENINGOCOCCAL VACCINES (B) Aged Out N o longer eligible based on patient's age to complete this topic Medical Devices Implanted Type Area Sheet Metal Worker Device Identifier Shelf Expiration Date Model / Serial / Lot Lens Intraocular Tecnis Zcb00 25.0d - [id number] Implanted:Qty: 1 on 06/23/2019 by Merlin Davis MD at [facility] M [facility] SALES 03/19/2023 ZCB00 25.0D / [id number] / Lens Intraocular Tecnis Zcb00 25.0d - [id number] Implanted:Qty: 1 on 09/01/2019 by Merlin Davis MD at [facility] [employer] 06/01/2023 ZCB00 25.0D / [id number] / Procedures Procedure Name Priority Date/Time Associated Diagnosis Comments HEPATITIS C ANTIBODY WITH REFLEX TO HCV, RNA QUANTITATIVE REAL-TIME PCR Routine 08/28/2018 10:44 AM EST Retinitis pigmentosa of both eyes Research study patient from Last 3 Months or Most Recently Relevant to Health Maintenance Results * Hepatitis C Antibody with Reflex to HCV, RNA quantitative Real-Time PCR (08/28/2018 10:44 AM EST) HCV Ab Nonreactive Nonreactive [facility] Comment: (NOTE) Test performed by: [facility] [address] [place] [address] Director: Harpreet Vásquez M.D., Ph.D.,Director of Laboratories Signal to Cutoff 0.08 <1.00 ratio [facility] Comment: (NOTE) HCV antibody was Nonreactive. There is no laboratory evidence of HCV infection. In most cases, no further action is required. However, if recent HCV exposure is suspected, a test for HCV RNA (test code 19643) is suggested. For additional information please refer to http://education.[employer]/faq/QQP04m5 (This link is being provided for informational/ educational purposes only.) Test performed by: [facility] [address] [place] [address] Director: Harpreet Vásquez M.D., Ph.D.,Director of Laboratories Additional Testing Not indicated [facility] Comment: (NOTE) Test performed by: [facility] [address] [place] [address] Director: Harpreet W Fahad, M.D., Ph.D.,Director of Laboratories 08/28/2018 10:4 4 AM EST 08/28/2018 11:47 AM EST Cristian Mora MD, PhD LAB BLOOD BKR ORDERABLE S Final Result Performing Organization Address City/State/[facility] Co de Phone Number [place] [address], [facility] from Last 3 Months or Most Recently Relevant to Health Maintenance Insurance PPO P[place] [address] [place] [address] [address] [place] [address] [place] [address] [place] [address] [place] [address] [place] [address] PPO Advance Directives For more information, please contact: [phone] (9AM - 5PM [place], Saturday-Saturday) * Full Code (Presumed) (Latest Code Status on File) Date Activated Date Inactivated Comments 09/01/2019 6:52 AM 09/01/2019 10:41 AM * Full Code (Presumed) Date Activated Date Inactivated Comments 06/23/2019 7:52 AM 06/23/2019 11:56 AM * Full Code (Presumed) Date Activated Date Inactivated Comments 09/25/2018 8:39 AM 09/25/2018 6:56 PM Care Teams Incinerator Plant General Supervisor Relationship Specialty Start Date End Date Mary Perez MD [address] [facility] [place] [address] PCP - General Internal Medicine 09/08/20 Additional Source Comments The information contained in this document represents components of the legal health record. It is not the complete legal health record.[facility]
--- OUTSIDE RECORDS SUMMARY | 2025-06-16 09:00 | XMS_ITS | Encounter Summary ---
Author Organization [facility] Address [address] [address] Phone Care Team Providers Care Can Striper Name Role Phone Mary Perez MD Primary Care Provider + Mary Perez MD Primary Care Provider + Encounter Details Date Type Department Care Team ([facility] st Contact Info) Description 08/27/2019 Prep [place] [facility] [facility] [address] [address] Merlin Davis MD [address] [place] [id number] [email or web address] Combined forms of age-related cataract of both eyes (Primary Dx); Retinitis pigmentosa of both eyes Social History Tobacco Use Types Packs/Day Years [...] Industry 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 [employer] 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 Not on file Not on file documented as of this encounter Plan of Treatment Not on file documented as of this encounter Visit Diagnoses Diagnosis Combined forms of age-related cataract of both eyes- Primary Retinitis pigmentosa of both eyes Pigmentary retinal dystrophy documented in this encounter Care Teams Can Striper Relationship Specialty Start Date End Date Mary Perez MD 24 [facility] [place] [address] PCP - General Internal Medicine 12/29/18 09/07/20 Mary Perez MD 24 [facility] [place] [address] PCP - General Internal Medicine 09/08/20 documented as of this encounter Additional Source Comments The information contained in this document represents components of the legal health record. It is not the complete legal health record.[facility]
== END 2025-06-16 09:25 | disposition home or self-care (01) ==
LOC: HO.HMCFM 08:43
PROVIDERS: PCP Physician Assistant; Visit Provider Physician Assistant
DX: H35.52 Pigmentary retinal dystrophy (principal); E78.5 Hyperlipidemia, unspecified; F41.9 Anxiety disorder, unspecified; F32.A Depression, unspecified

== ENCOUNTER 2025-06-16 08:43 | Outpatient (REF) | payer BC, SELFPAY ==
[2025-06-16 11:21] LABS: MANUAL DIFF FLAG NO
[2025-06-16 11:29] LABS: Hematocrit 47.1 % (37.0-47.0); Hemoglobin 15.2 g/dl (12.0-16.0); Imm Gran Abs Auto 0.06 X10*3/uL (0.00-0.03); Imm Gran Pct Auto 0.6 % (0.0-0.4); Lymphocytes Absolute Auto 1.8 X10*3/uL (1.2-4.9); Mean Corpuscular HGB Conc 32.3 g/dl (31.0-35.0); Mean Corpuscular Hemoglobin 30.6 pg (27.0-33.0); Mean Corpuscular Volume 94.8 fL (80.0-98.0); NRBC Abs Auto 0.000 X10*3/uL (0.0-0.012); NRBC Pct Auto 0.0 /100WBC (0.0-0.2); Platelet Count 303 X10*3/uL (160-400); Red Blood Count 4.97 X10*6/uL (4.20-5.50); White Blood Count 9.7 X10*3/uL (4.8-10.8)
[2025-06-16 11:31] LABS: Appearance Urine Turbid; Glucose Urine UA Negative (Negative); PH 5.0 (5.0-9.0); Specific Gravity - Urine 1.020 (1.005-1.025); UMIC TRIGGER UACC YES
[2025-06-16 11:40] LABS: UACC Culture Trigger YES
[2025-06-16 11:53] LABS: Alanine Aminotransferase 16 U/L (0-31); Albumin Level 4.5 g/dL (3.5-5.0); Alkaline Phosphatase 121 U/L (39-117); Anion Gap 12 (12-20); Aspartate Amino Transferase 24 U/L (5-31); Blood Urea Nitrogen 18 mg/dL (9-16); Calcium 10.0 mg/dL (8.4-10.2); Carbon Dioxide 28 mmol/L (22-29); Chloride 106 mmol/L (96-108); Cholesterol 246 mg/dL (<200); Estimated Glomerular Filt Rate > 60; HDL Cholesterol 37 mg/dL (>40); Potassium 4.5 mmol/L (3.3-5.1); Sodium 141 mmol/L (135-145); Total Protein 7.4 g/dL (6.5-8.0); Triglycerides 176 mg/dL (<150)
[2025-06-16 12:00] LABS: Microalbum/Creatinine Ratio Ur 17.3 ug/mg cr (<30)
== END 2025-06-16 08:44 | disposition home or self-care (01) ==
LOC: HO.WFDLDS 08:43
PROVIDERS: PCP Physician Assistant; Visit Provider Physician Assistant
DX: Z13.220 Encounter for screening for lipoid disorders (principal); E78.5 Hyperlipidemia, unspecified; R31.9 Hematuria, unspecified; F41.9 Anxiety disorder, unspecified; F32.A Depression, unspecified; H35.52 Pigmentary retinal dystrophy; R73.01 Impaired fasting glucose
CPT/HCPCS: 36415; 80053; 80061; 81001; 82043; 82570; 83036; 84443; 85025; 87086